=== PATIENT | female | born 1985 | race Native Hawaiian/Other Pacific Islander ===

== ENCOUNTER → 2018-07-28 | Outpatient (CLI) | payer OTHER ==
[~2018-07-28] MED LIST: ISOVUE-370 76% 100ML VIAL (Q9967) As Ordered
== END ==
LOC: M RADPRO 10:57
DX: N97.1 Female infertility of tubal origin (principal)
CPT/HCPCS: 58340

== ENCOUNTER 2018-12-22 00:09 | Emergency (ER) | payer OTHER ==
[2018-12-22 02:17] VITALS: BP 116/57
== END 2018-12-22 02:36 | disposition home or self-care (01) ==
LOC: M ED 00:09
DX: K52.9 Noninfective gastroenteritis and colitis, unspecified (principal)

== ENCOUNTER 2019-03-15 17:12 | Emergency (ER) | payer OTHER ==
[~2019-03-15] VITALS: Ht 162.6 cm; Wt 86.4 kg
[2019-03-15] MEDS ORDERED: NS 1,000 ML IV ONE (18:00)
[2019-03-15 18:12] LABS: BASO % 0.4 % (0.0-1.0); EOS # 0.2 10^3/uL (0.0-0.50); EOS % 1.8 % (0.0-3.0); HEMATOCRIT 38.2 % (36.0-47.0); HEMOGLOBIN 12.3 g/dl (12.0-15.5); LYMPH # 1.8 10^3/uL (1.5-4.5); LYMPH % 21.5 % (24.0-44.0); MEAN CORPUSCULAR HEMOGLOBIN 28.3 pg (27.0-33.0); MEAN CORPUSCULAR HGB CONC 32.2 g/dl (32.0-36.5); MEAN CORPUSCULAR VOLUME 87.8 fl (80.0-96.0); MONO # 0.6 10^3/uL (0.0-0.8); MONO % 7.2 % (0.0-5.0); NEUTROPHILS # 5.7 10^3/uL (1.8-7.7); NEUTROPHILS % 68.7 % (36.0-66.0); PLATELET COUNT, AUTOMATED 261 10^3/uL (150-450); RED BLOOD COUNT 4.35 10^6/uL (4.00-5.40); WHITE BLOOD COUNT 8.3 10^3/uL (4.0-10.0)
[2019-03-15 18:44] LABS: ALBUMIN 3.6 GM/DL (3.2-5.2); ALT/SGPT 38 U/L (12-78); BILIRUBIN,DIRECT < 0.1 MG/DL (0.0-0.2); BILIRUBIN,TOTAL 0.2 MG/DL (0.2-1.0); BLOOD UREA NITROGEN 17 MG/DL (7-18); CALCIUM LEVEL 8.8 MG/DL (8.5-10.1); CARBON DIOXIDE LEVEL 27 MEQ/L (21-32); CHLORIDE LEVEL 107 MEQ/L (98-107); CREATININE FOR GFR 0.84 MG/DL (0.55-1.30); GLOMERULAR FILTRATION RATE > 60.0 (>60); GLUCOSE, FASTING 81 MG/DL (70-100); LIPASE 332 U/L (73-393); POTASSIUM SERUM 3.8 MEQ/L (3.5-5.1); SODIUM LEVEL 139 MEQ/L (136-145); TOTAL PROTEIN 7.8 GM/DL (6.4-8.2)
--- NOTE | 2019-03-15 19:57 | REPVR ---
EXAM: US Pelvis Complete, Transabdominal and US Pelvis, Transvaginal EXAM DATE/TIME: 03/15/2019 6:55 PM CLINICAL HISTORY: 33 years old, female; Pelvic pain; Additional info: Pelvic discomfort TECHNIQUE: Imaging protocol: Real-time transabdominal and transvaginal pelvic ultrasound (complete) with image documentation. Transvaginal imaging was used for better evaluation of the endometrium and adnexa. COMPARISON: XA Hysterosalpingogram 07/28/2018 11:12 AM FINDINGS: Uterus/cervix: 8.2 x 4 x 5.2 cm. Normal endometrial thickness, measuring approximately 9 mm. Right ovary: 2.8 x 2.6 x 2 cm. No mass. Normal ovarian blood flow. Left ovary: 2.9 x 1.9 x 2 cm. No mass. Normal ovarian blood flow. Free fluid: None. Bladder: Normal. IMPRESSION: No acute sonographic findings. Electronically signed by: Hung Guajardo On 03/15/2019 19:57:21 PM
[2019-03-15] MEDS ORDERED: BENZONATATE 100 MG CAP PO ONE (20:15)
[2019-03-15 20:18] LABS: CHLAMYDIA DNA AMPLIFICATION NEGATIVE (NEGATIVE); GC DNA AMPLIFICATION NEGATIVE (NEGATIVE)
[2019-03-15] MEDS ORDERED: TESS100C PO (20:22)
[2019-03-15 20:37] VITALS: BP 105/63
== END 2019-03-15 20:49 | disposition home or self-care (01) ==
LOC: M ED 17:12
DX: N39.3 Stress incontinence (female) (male) (principal); N94.10 Unspecified dyspareunia; R05 Cough; Z87.891 Personal history of nicotine dependence

== ENCOUNTER → 2020-04-06 | Outpatient (CLI) | payer OTHER ==
[~2020-04-06] MED LIST changes: -ISOVUE-370 76% 100ML VIAL (Q9967) As Ordered; +TESS100C PO
[2020-04-06 12:33] LABS: BASO % 0.6 % (0.0-1.0); EOS # 0.1 10^3/uL (0.0-0.5); EOS % 1.8 % (0.0-3.0); HEMATOCRIT 40.6 % (36.0-47.0); HEMOGLOBIN 13.1 g/dl (12.0-15.5); LYMPH # 1.5 10^3/uL (1.5-5.0); LYMPH % 22.3 % (24.0-44.0); MEAN CORPUSCULAR HEMOGLOBIN 28.7 pg (27.0-33.0); MEAN CORPUSCULAR HGB CONC 32.3 g/dl (32.0-36.5); MONO # 0.4 10^3/uL (0.0-0.8); MONO % 6.3 % (0.0-5.0); NEUTROPHILS # 4.5 10^3/uL (1.5-8.5); NEUTROPHILS % 68.5 % (36.0-66.0); PLATELET COUNT, AUTOMATED 282 10^3/uL (150-450); RED BLOOD COUNT 4.56 10^6/uL (4.00-5.40); WHITE BLOOD COUNT 6.6 10^3/uL (4.0-10.0)
[2020-04-06 13:10] LABS: ALT/SGPT 57 U/L (12-78); BILIRUBIN,TOTAL 0.5 MG/DL (0.2-1.0); BLOOD UREA NITROGEN 15 MG/DL (7-18); C REACTIVE PROTEIN QUANTITATIV 0.62 MG/DL (0.00-0.30); CALCIUM LEVEL 8.8 MG/DL (8.5-10.1); CARBON DIOXIDE LEVEL 24 MEQ/L (21-32); CHLORIDE LEVEL 107 MEQ/L (98-107); CREATININE FOR GFR 0.73 MG/DL (0.55-1.30); FREE T4 1.16 NG/DL (0.76-1.46); GLOMERULAR FILTRATION RATE > 60.0 (>60); GLUCOSE, FASTING 110 MG/DL (70-100); POTASSIUM SERUM 5.2 MEQ/L (3.5-5.1); SODIUM LEVEL 137 MEQ/L (136-145)
--- NOTE | 2020-04-07 07:19 | REP ---
REASON: Chronic pain. PRIORS: None. FINDINGS: Five views of the lumbosacral spine show no acute fracture, dislocation or subluxation. The intervertebral disc spaces are symmetric and well maintained. There is no spondylolisthesis. The pedicles are intact bilaterally and there is no destructive osseous lesions. IMPRESSION: Unremarkable lumbosacral spine series. There is a large calcification seen in the right anterior abdomen, which measures approximately 4.7 x 3.8 cm. The etiology of which is unknown. Electronically Signed by Corona Marvin DO 04/09/2020 10:51 A
--- NOTE | 2020-04-07 07:29 | REP ---
REASON: Atraumatic neck pain. PRIORS: None. Nine views were obtained. CERVICAL SPINE SERIES: FINDINGS: Seven views of the cervical spine show no acute fracture, dislocation or subluxation. The intervertebral disc spaces are symmetric and well maintained. The facet joints are well aligned bilaterally. The intervertebral foramina are patent bilaterally and the neural canal is not encroached upon. There is no destructive osseous lesion. Flexion and extension does not appear to be particularly limited radiographically. The anterior spinal soft tissues appear unremarkable. IMPRESSION: Unremarkable cervical spine series. Although this plain radiographic evaluation of the cervical spine shows no evidence of a fracture, it should be remembered that CT is much more sensitive than plain radiography of the C-spine in detecting fractures. If this examination was ordered to rule out a fracture, then CT of the cervical spine is recommended. The dens cannot be effectively evaluated secondary to the superimposition of osseous structures and/or dentition on all views. Electronically Signed by Corona Marvin DO 04/09/2020 10:51 A
== END ==
LOC: M WUC 09:57
PROVIDERS: ATTEND Physician Assistant
DX: S16.1XXA Strain of muscle, fascia and tendon at neck level, initial encounter (principal); X58.XXXA Exposure to other specified factors, initial encounter; Y92.9 Unspecified place or not applicable; R19.09 Other intra-abdominal and pelvic swelling, mass and lump